=== PATIENT | female | born 1970 | race Caucasian/White ===

== ENCOUNTER 2021-11-17 16:34 | Emergency (ER) | payer OTHER ==
[~2021-11-17] VITALS: Ht 167.6 cm; Wt 136.1 kg
[2021-11-17 16:50] VITALS: BP 179/97
[2021-11-17] MEDS ORDERED: MEDROLDOSEPACK PO (18:51)
[2021-11-17] MEDS ORDERED: FLEXERIL PO (18:51)
--- NOTE | 2021-11-18 09:13 | EKG ---
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: [facility] : 1970 Requested By: Malena Roger Order Number: [id number] MD: Dewey Youngblood Measurements Intervals [place] Rate: 77 P: 60 MI: 166 QRS: 28 QRSD: 104 T: -3 QT: 385 QTc: 436 Interpretive Statements Sinus rhythm No significant abnormality No previous ECG available for comparison Electronically Signed On 11-18-2021 9:13:46 CLAIM INVESTIGATOR by Dewey Youngblood [email or web address] <ELECTRONICALLY SIGNED> By: Dewey Youngblood MD, [facility] 11/18/21 0913 1839 1839 Dewey Youngblood MD, FACC /EPI
== END 2021-11-17 19:48 | disposition home or self-care (01) ==
LOC: ER 16:34
DX: M25.512 Pain in left shoulder (principal); Z88.8 Allergy status to other drugs, medicaments and biological substances